=== PATIENT | female | born 1960 | race Caucasian/White ===

== ENCOUNTER 2016-10-01 10:23 | Outpatient (CLI) ==
[2013-09-27 19:29] VITALS: BMI 21.6
--- NOTE | 2016-10-01 11:55 | MAMMO ---
EXAM: Bilateral digital screening mammogram History: Screening Comparison: Bilateral mammogram 03/18/2015 Findings: MLO and CC views of bilateral breasts demonstrate scattered fibroglandular breast parench yma. Stable bilateral breast implants. 1.2 cm mass within the 12 o'clock right breast. No suspiciou s microcalcifications. Impression: Indeterminate right breast mass. Recommend further evaluation with ultrasound. BIRADS 0
== END 2016-10-01 10:24 | disposition home or self-care (01) ==
LOC: RAD 10:23
PROVIDERS: ATTEND Internal Medicine
DX: Z12.31 Encounter for screening mammogram for malignant neoplasm of breast (principal)

== ENCOUNTER 2016-10-05 09:15 | Outpatient (CLI) ==
[2013-09-27 19:29] VITALS: BMI 21.6
--- NOTE | 2016-10-05 10:06 | US ---
EXAM: Right breast ultrasound. History: Right breast mass. Comparison: Bilateral mammogram 10/01/2016 Technique: Multiple sonographic images through the right breast were obtained. Color duplex Dopple r was used to interrogate vascular flow. Findings: At 12 o'clock 4 cm from the nipple within the right breast there is a 1.0 cm x 1.1 cm x 0.8 cm well circumscribed mixed echogenic nodule. This correlates with mammography. Impression: 12 o'clock right breast mass that resembles a fibroadenoma or complex cyst and is proba alysha benign. Recommend followup ultrasound in 6 months to document stability. BIRADS 3
== END 2016-10-05 09:16 | disposition home or self-care (01) ==
LOC: RAD 09:15
PROVIDERS: ATTEND Internal Medicine
DX: R92.8 Other abnormal and inconclusive findings on diagnostic imaging of breast (principal); N63 Unspecified lump in breast

== ENCOUNTER 2017-05-10 12:06 | Emergency (ER) ==
[2017-05-10 12:10] VITALS: BP 117/76; TEMP 98.5; BMI 21.9
--- NOTE | 2017-05-10 12:37 | DI ---
Exam: Two x-rays of the chest. Comparison: None available. Reason for exam: Cough. FINDINGS: No pneumothorax, pleural effusion, or focal consolidation. The cardiac silhouette is not enlarged. The imaged osseous structures appear grossly unremarkable without acute fracture. Impression: No acute cardiopulmonary process.
--- NOTE | 2017-05-10 13:05 | ED.PDOC ---
General ED Provider: Dr. LUCILA MEDEROS Chief Complaint: Cough Stated Complaint: cough Time Seen by Physician: 12:10 Information Source: Patient Exam Limitations: No limitations Primary Care Provider: FLORIN KOROMA Nursing and Triage Documentation Reviewed and Agree: Yes Reviewed sepsis parameters & appropriate labs ordered?: Yes System Inflammatory Response Syndrome: Not Applicable Sepsis Protocol: For patient's 13 years and over: Temp is 96.8 and below OR 101 and greater Pulse >90 BPM Resp >20/minute Acutely Altered Mental Status Are patient's symptoms suggestive of a new infection, such as: -Pneumonia -Skin, Soft Tissue -Endocarditis -UTI -Bone, Joint Infection -Implantable Device -Acute Abdominal Infection -Wound Infection -Meningitis -Blood Stream Catheter Infection -Unknown System Inflammatory Response Syndrome: Not Applicable Respiratory Complaint Exam - Respiratory Complaint/Exam Onset/Duration: 1 week Symptoms Are: Still present Timing: Intermittent Initial Severity: Moderate Current Severity: Mild Location: Nose, Throat, Chest Character: Reports: Non-productive cough Aggravating: Reports: URI Alleviating: Reports: Spontaneous resolution Associated Signs and Symptoms: Reports: URI, Nasal congestion Related History: Reports: Similar episode History of Healthcare-Acquired Pneumonia: No Related Surgical History: Reports: None Pulmonary Embolism Risk Factors: None Cardiac Risk Factors: Reports: None Pseudomonas Risk Factors: Reports: None Tuberculosis Risk Factors: Reports: None Status Asthmaticus Risk Factors: Reports: None Home Oxygen Use: No Recent Stress Test: No Recent Echo/LV Function: No Current Antibiotic Use: No Current Asthma Medication Use: No Respiratory Distress: None Inadequate Respiratory Effort: No Dysphagia Present: No Stridor Present: No JVD Present: No Accessory Muscle Use: No Retractions: Not Present Sinus Tenderness: None Grunting Respirations: No Kussmaul Respirations: No Differential Diagnoses: Pneumonia, Bronchitis, Influenza Review of Systems - Review Of Systems Constitutional: Reports: Fever, Malaise Eyes: Reports: No symptoms Ears, Nose, Mouth, Throat: Reports: No symptoms Respiratory: Reports: Cough Cardiac: Reports: No symptoms GI: Reports: No symptoms : Reports: No symptoms Musculoskeletal: Reports: No symptoms Skin: Reports: No symptoms Neurological: Reports: No symptoms Endocrine: Reports: No symptoms Hematologic/Lymphatic: Reports: No symptoms All Other Systems: Reviewed and Negative Past Medical History - Past Medical History Previously Healthy: Yes Endocrine: Reports: None Cardiovascular: Reports: None Respiratory: Reports: None Hematological: Reports: None Gastrointestinal: Reports: None Genitourinary: Reports: None Neuro/Psych: Reports: None Musculoskeletal: Reports: None Cancer: Reports: None Last Menstrual Period: POST MENOPAUSAL - Surgical History General Surgical History: Reports: None - Family History Family History: Reports: None - Social History Smoking Status: Never smoker Hx Substance Use: No Alcohol Screening: Occasionally - Immunizations Tetanus Shot up to Date: Yes Physical Exam - Physical Exam Appearance: Well-appearing, No pain distress, Well-nourished Eyes: IRAM, EOMI, Conjunctiva clear ENT: Ears normal, Nose normal, Oropharynx normal Respiratory: Airway patent, Breath sounds clear, Breath sounds equal, Respirations nonlabored Cardiovascular: RRR, Pulses normal, No rub, No murmur GI/: Soft, Nontender, No masses, Bowel sounds normal, No Organomegaly Musculoskeletal: Normal strength, ROM intact, No edema, No calf tenderness Skin: Warm, Dry, Normal color Neurological: Sensation intact, Motor intact, Reflexes intact, Cranial nerves intact, Alert, Oriented Psychiatric: Affect appropriate, Mood appropriate Interpretation - Radiology Interpretation Radiology Interpretation By: Radiologist Radiology Results: No acute changes Critical Care Note - Critical Care Note Total Time (mins): 0 Course - Course Hematology/Chemistry: 05/10/17 12:19 05/10/17 12:19 Orders, Labs, Meds: Lab Review 05/10/17 05/10/17 05/10/17 12:17 12:19 12:19 WBC 6.51 RBC 4.76 Hgb 14.0 Hct 41.4 MCV 87.0 MCH 29.4 MCHC 33.8 RDW Coeff of Nolan 12.9 Plt Count 284 Immature Gran % (Auto) 0.2 Neut % (Auto) 56.6 Lymph % (Auto) 29.8 Cavalier % (Auto) 13.1 H Eos % (Auto) 0.0 Baso % (Auto) 0.3 Immature Gran # (Auto) 0.0 Neut # 3.7 Lymph # 1.9 Cavalier # 0.9 Eos # 0.0 Baso # 0.0 Sodium 138 Potassium 4.0 Chloride 96 L Carbon Dioxide 31 Anion Gap 15.0 BUN 8 Creatinine 0.78 Estimated GFR (MDRD) 77.00 BUN/Creatinine Ratio 10.25 Glucose 106 Calcium 9.7 Total Bilirubin 0.3 AST 17 ALT 12 Alkaline Phosphatase 67 Total Protein 7.6 Albumin 3.8 Globulin 3.8 Albumin/Globulin Ratio 1.00 Influenza A (Rapid) Negative by naat Influenza B (Rapid) Positive by naat H Orders Category Date Time Status EKG-(ED ONLY) Stat CARDIO 05/10/17 12:12 Completed CBC W/ AUTO DIFF Stat LAB 05/10/17 12:19 Completed COMPREHENSIVE METABOLIC PANEL Stat LAB 05/10/17 12:19 Completed FLU A/B MOLECULAR Stat LAB 05/10/17 12:17 Completed MOLECULAR GROUP A STREP Stat LAB 05/10/17 12:17 Completed CHEST, 2 VIEWS PA & LAT Stat RADS 05/10/17 12:11 Completed Vital Signs: Temp Pulse Resp BP Pulse Ox 05/10/17 12:07 98.5 F 105 H 18 117/76 98 Departure - Departure Time of Disposition: 13:30 Disposition: HOME SELF-CARE Discharge Problem: Cough, Influenza due to influenza virus, type B Instructions: Influenza (ED) Condition: Good Pt referred to PMD for follow-up: Yes IPMP verified?: No Additional Instructions: Please call your Family Physician as soon as possible to schedule a follow-up appointment. Allergies/Adverse Reactions: Allergies No Known Allergies Allergy (Unverified 05/10/17 12:10) Home Medications: Ambulatory Orders 1 [No Reported Medications] 09/27/13 Disposition Discussed With: Patient, Family
== END 2017-05-10 13:08 | disposition home or self-care (01) ==
LOC: ED 12:06
DX: J10.1 Influenza due to other identified influenza virus with other respiratory manifestations (principal)
CPT/HCPCS: 36415; 80053; 85025; 87502; 87651; 93005; 93010; 99283